=== PATIENT | female | born 1955 | race Caucasian/White ===

== ENCOUNTER 2019-07-19 14:30 | Outpatient (RCR) | payer BC, SELFPAY | END 2019-07-31 00:01 | LOC: GPT 14:30 | PROVIDERS: Visit Provider Family Medicine | DX: M48.061 Spinal stenosis, lumbar region without neurogenic claudication (principal); M54.42 Lumbago with sciatica, left side; G89.29 Other chronic pain | CPT/HCPCS: 97110 ×2; 97140; 97161; 97530; G0283 ==

== ENCOUNTER 2019-08-01 06:00 | Outpatient (RCR) | payer BC, SELFPAY | END 2019-08-31 23:59 | disposition home or self-care (01) | LOC: GPT 06:00 | PROVIDERS: Visit Provider Family Medicine | DX: M48.061 Spinal stenosis, lumbar region without neurogenic claudication (principal) | CPT/HCPCS: 97110; 97112 ==

== ENCOUNTER 2019-09-01 06:00 | Outpatient (RCR) | payer BC, SELFPAY | END 2019-09-29 23:59 | disposition home or self-care (01) | LOC: GPT 06:00 | PROVIDERS: Visit Provider Family Medicine | DX: M48.061 Spinal stenosis, lumbar region without neurogenic claudication (principal); M53.3 Sacrococcygeal disorders, not elsewhere classified | CPT/HCPCS: 97110; 97530 ==